=== PATIENT | male | born 2000 | race African-American/Black ===

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

== ENCOUNTER 2020-05-08 21:51 | Emergency (ER) | payer MEDICAID ==
[~2020-05-08] VITALS: Ht 177.8 cm; Wt 81.8 kg
[2020-05-08 22:12] VITALS: Ht 177.8 cm; Wt 81.8 kg
--- NOTE | 2020-05-08 22:30 | NUR ---
DR GOLDBERG NOTIFIED AND REVIEWED PT'S BEHAVIOR AND ASSESSMENT RESULTS, PT IS A LOW RISK PER DR GOLDBERG. DR GOLDBERG STATED TO GIVE RESOURCES TO PT AT TIME OF DISCHARGE. NO FURTHER ORDERS AT THIS TIME. RESOURCES REVIEWED WITH PT AND HE VERBALIZED UNDERSTANDING.
[2020-05-08 23:18] LABS: BASOPHILS 0.7 % (0-2); EOSINOPHILS 5.9 % (0-7); HEMATOCRIT 42.5 % (42.0-54.0); HEMOGLOBIN 14.3 g/dL (13.5-17.5); IMMATURE GRANULOCYTES 0.2 % (0-5); LYMPHOCYTES 45.5 % (15-50); MCH 28.4 pg (26.0-34.0); MCHC 33.6 g/dL (31.0-37.0); MCV 84.5 fL (80.0-100.0); MEAN PLATELET VOLUME 8.7 fL (7.4-10.4); MONOCYTES 9.8 % (2-11); NEUTROPHILS 37.9 % (40-80); PLATELET COUNT 226 10x3/uL (130-400); RBC 5.03 10x6/uL (4.20-6.10); RDW 13.9 % (11.5-14.5); WBC 6.1 10x3/uL (4.8-10.8)
[2020-05-08 23:23] LABS: CALC OSMOLALITY 274 mosm/kg (275-300); CALCIUM 8.6 mg/dL (8.5-10.1); CARBON DIOXIDE 25.3 mmol/L (21.0-32.0); CHLORIDE - SERUM 105 mmol/L (98-107); CREATININE - SERUM 0.8 mg/dL (0.6-1.3); GLUCOSE 105 mg/dL (74-106); POTASSIUM - SERUM 3.8 mmol/L (3.5-5.1); SODIUM 137 mmol/L (136-145); UREA NITROGEN 14 mg/dL (7-18); eGFR NON AFRICAN AMERICAN > 90 mL/min (90-120)
[2020-05-08 23:31] LABS: ALBUMIN 3.2 g/dL (3.4-5.0); ALKALINE PHOSPHATASE 120 U/L (30-120); ALT (SGPT) 31 U/L (10-68); BILIRUBIN - TOTAL 0.35 mg/dL (0.2-1.3); MAGNESIUM - SERUM 1.6 mg/dL (1.8-2.4); PROTEIN - SERUM 6.8 g/dL (6.4-8.2)
[2020-05-08 23:57] LABS: BILIRUBIN NEGATIVE (NEGATIVE); GLUCOSE NEGATIVE (NEGATIVE); KETONE NEGATIVE (NEGATIVE); NITRITE NEGATIVE (NEGATIVE); UROBILINOGEN NORMAL (NORMAL)
[2020-05-09 00:07] LABS: UDS - AMPHET POSITIVE QUAL (NEGATIVE); UDS - BARB NEGATIVE QUAL (NEGATIVE); UDS - BENZO POSITIVE QUAL (NEGATIVE); UDS - COCAINE NEGATIVE QUAL (NEGATIVE); UDS - OPIATE NEGATIVE QUAL (NEGATIVE); UDS - PCP NEGATIVE QUAL (NEGATIVE); UDS - THC NEGATIVE QUAL (NEGATIVE)
[2020-05-09 03:24] VITALS: BP 119/59
== END 2020-05-09 06:58 ==
LOC: D.ER 21:51
PROVIDERS: Family Medicine
DX: R45.851 Suicidal ideations (principal); F23 Brief psychotic disorder; Z91.19 Patient's noncompliance with other medical treatment and regimen

== ENCOUNTER 2020-05-26 20:19 | Emergency (ER) | payer MEDICAID ==
[~2020-05-26] VITALS: Ht 177.8 cm; Wt 72.7 kg
[2020-05-26 20:25] VITALS: Ht 177.8 cm; Wt 72.7 kg
[2020-05-26 20:54] LABS: BILIRUBIN NEGATIVE (NEGATIVE); GLUCOSE NEGATIVE (NEGATIVE); KETONE NEGATIVE (NEGATIVE); NITRITE NEGATIVE (NEGATIVE); SPECIFIC GRAVITY 1.015 (1.005-1.020); UROBILINOGEN NORMAL (NORMAL)
[2020-05-26 21:03] LABS: UDS - AMPHET POSITIVE QUAL (NEGATIVE); UDS - BARB NEGATIVE QUAL (NEGATIVE); UDS - BENZO NEGATIVE QUAL (NEGATIVE); UDS - COCAINE NEGATIVE QUAL (NEGATIVE); UDS - OPIATE NEGATIVE QUAL (NEGATIVE); UDS - PCP NEGATIVE QUAL (NEGATIVE); UDS - THC NEGATIVE QUAL (NEGATIVE)
[2020-05-26 21:03] LABS: HEMATOCRIT 47.2 % (42.0-54.0); HEMOGLOBIN 15.4 g/dL (13.5-17.5); LYMPHOCYTES 53.9 % (15-50); MCH 27.9 pg (26.0-34.0); MCHC 32.6 g/dL (31.0-37.0); MCV 85.5 fL (80.0-100.0); MEAN PLATELET VOLUME 9.4 fL (7.4-10.4); NEUTROPHILS 34.2 % (40-80); PLATELET COUNT 263 10x3/uL (130-400); RBC 5.52 10x6/uL (4.20-6.10); RDW 14.2 % (11.5-14.5)
[2020-05-26 21:08] LABS: CALC OSMOLALITY 270 mosm/kg (275-300); CARBON DIOXIDE 27.6 mmol/L (21.0-32.0); CHLORIDE - SERUM 101 mmol/L (98-107); CREATININE - SERUM 0.8 mg/dL (0.6-1.3); GLUCOSE 93 mg/dL (74-106); POTASSIUM - SERUM 3.5 mmol/L (3.5-5.1); SODIUM 136 mmol/L (136-145); UREA NITROGEN 11 mg/dL (7-18); eGFR NON AFRICAN AMERICAN > 90 mL/min (90-120)
[2020-05-26 21:14] LABS: ALKALINE PHOSPHATASE 121 U/L (30-120); ALT (SGPT) 30 U/L (10-68); BILIRUBIN - TOTAL 0.43 mg/dL (0.2-1.3); PROTEIN - SERUM 8.1 g/dL (6.4-8.2)
--- NOTE | 2020-05-26 21:36 | NUR ---
UNABLE TO COMPLETE ASSESSMENT DUE TO PT BEING SEDATED AT THIS TIME. PT ATTEMPTED TO STAB SELF IN THE NECK DURING ASSESSMENT. SITTER ORDERED IN LINE OF SIGHT. PAPERWORK STARTED AND SITTER IN PLACE. UNABLE TO SIGN PAPERWORK AT THIS TIME.
[2020-05-27 09:47] VITALS: BP 148/79
== END 2020-05-27 09:51 ==
LOC: D.ER 20:19
PROVIDERS: Emergency Medicine
DX: R45.851 Suicidal ideations (principal); F15.10 Other stimulant abuse, uncomplicated

== ENCOUNTER 2020-06-03 05:57 | Emergency (ER) | payer MEDICAID ==
[~2020-06-03] VITALS: Ht 177.8 cm; Wt 81.8 kg
[2020-06-03 05:59] VITALS: Ht 177.8 cm; Wt 81.8 kg
[2020-06-03 06:31] LABS: UDS - AMPHET POSITIVE QUAL (NEGATIVE); UDS - BARB NEGATIVE QUAL (NEGATIVE); UDS - BENZO NEGATIVE QUAL (NEGATIVE); UDS - COCAINE NEGATIVE QUAL (NEGATIVE); UDS - OPIATE NEGATIVE QUAL (NEGATIVE); UDS - PCP NEGATIVE QUAL (NEGATIVE); UDS - THC NEGATIVE QUAL (NEGATIVE)
[2020-06-03 06:45] LABS: CALC OSMOLALITY 276 mosm/kg (275-300); CALCIUM 9.3 mg/dL (8.5-10.1); CARBON DIOXIDE 26.6 mmol/L (21.0-32.0); CHLORIDE - SERUM 104 mmol/L (98-107); POTASSIUM - SERUM 4.5 mmol/L (3.5-5.1); SODIUM 138 mmol/L (136-145); UREA NITROGEN 21 mg/dL (7-18); eGFR NON AFRICAN AMERICAN > 90 mL/min (90-120)
[2020-06-03 06:57] LABS: GLUCOSE 66 mg/dL (74-106)
[2020-06-03 07:11] LABS: ALKALINE PHOSPHATASE 112 U/L (30-120); ALT (SGPT) 34 U/L (10-68); BILIRUBIN - TOTAL 0.33 mg/dL (0.2-1.3); PROTEIN - SERUM 8.3 g/dL (6.4-8.2); THYROID STIMULATING HORMONE 3.44 uIU/mL (0.36-3.74)
[2020-06-03 07:12] LABS: HEMATOCRIT 48.6 % (42.0-54.0); HEMOGLOBIN 16.4 g/dL (13.5-17.5); MCH 28.5 pg (26.0-34.0); MCHC 33.7 g/dL (31.0-37.0); MCV 84.4 fL (80.0-100.0); MEAN PLATELET VOLUME 9.5 fL (7.4-10.4); PLATELET COUNT 250 10x3/uL (130-400); RBC 5.76 10x6/uL (4.20-6.10); WBC 10.2 10x3/uL (4.8-10.8)
[2020-06-03 07:14] LABS: CKMB 9.4 U/L (0.0-3.6); CREATINE KINASE 1471 UL (21-232)
[2020-06-03 07:39] LABS: BACTERIA FEW /hpf (NEGATIVE); BILIRUBIN NEGATIVE (NEGATIVE); EPITHELIAL CELLS RARE /hpf (0-5); GLUCOSE NEGATIVE (NEGATIVE); KETONE SMALL mg/dL (NEGATIVE); NITRITE NEGATIVE (NEGATIVE); SPECIFIC GRAVITY 1.025 (1.005-1.020); UROBILINOGEN NORMAL (NORMAL)
[2020-06-03 12:16] VITALS: BP 114/69
[2020-06-03 12:50] LABS: EOSINOPHILS 3 % (0-7); LYMPHOCYTES 33 % (15-50); MONOCYTES 18 % (2-11); NEUTROPHILS 46 % (40-80); PLATELET ESTIMATE NORMAL
[2020-06-03 12:53] LABS: ROULEAUX OCC
== END 2020-06-03 12:16 | disposition home or self-care (01) ==
LOC: D.ER 05:57
PROVIDERS: Family Medicine
DX: R41.82 Altered mental status, unspecified (principal); F20.9 Schizophrenia, unspecified; M62.82 Rhabdomyolysis; F19.10 Other psychoactive substance abuse, uncomplicated; I10 Essential (primary) hypertension

== ENCOUNTER 2020-06-06 17:19 | Emergency (ER) | payer MEDICAID ==
[~2020-06-06] VITALS: Ht 177.8 cm; Wt 67.3 kg
[2020-06-06 17:24] VITALS: Ht 177.8 cm; Wt 67.3 kg
[2020-06-06 17:56] LABS: UDS - AMPHET POSITIVE QUAL (NEGATIVE); UDS - BARB NEGATIVE QUAL (NEGATIVE); UDS - BENZO POSITIVE QUAL (NEGATIVE); UDS - COCAINE NEGATIVE QUAL (NEGATIVE); UDS - OPIATE NEGATIVE QUAL (NEGATIVE); UDS - PCP NEGATIVE QUAL (NEGATIVE); UDS - THC NEGATIVE QUAL (NEGATIVE)
[2020-06-06 18:02] LABS: BASOPHILS 0.4 % (0-2); EOSINOPHILS 3.2 % (0-7); HEMATOCRIT 41.2 % (42.0-54.0); HEMOGLOBIN 13.7 g/dL (13.5-17.5); IMMATURE GRANULOCYTES 0.1 % (0-5); LYMPHOCYTES 51.1 % (15-50); MCH 28.4 pg (26.0-34.0); MCHC 33.3 g/dL (31.0-37.0); MCV 85.5 fL (80.0-100.0); MEAN PLATELET VOLUME 9.3 fL (7.4-10.4); MONOCYTES 11.7 % (2-11); NEUTROPHILS 33.5 % (40-80); RBC 4.82 10x6/uL (4.20-6.10); RDW 14.6 % (11.5-14.5); WBC 7.2 10x3/uL (4.8-10.8)
[2020-06-06 18:22] LABS: BILIRUBIN NEGATIVE (NEGATIVE); GLUCOSE NEGATIVE (NEGATIVE); KETONE NEGATIVE (NEGATIVE); NITRITE NEGATIVE (NEGATIVE); UROBILINOGEN NORMAL (NORMAL)
[2020-06-06 18:22] LABS: PLATELET COUNT 183 10x3/uL (130-400)
[2020-06-06 18:25] LABS: CALC OSMOLALITY 267 mosm/kg (275-300); CALCIUM 8.7 mg/dL (8.5-10.1); CARBON DIOXIDE 26.2 mmol/L (21.0-32.0); CHLORIDE - SERUM 104 mmol/L (98-107); CREATININE - SERUM 0.9 mg/dL (0.6-1.3); GLUCOSE 76 mg/dL (74-106); SODIUM 135 mmol/L (136-145); UREA NITROGEN 10 mg/dL (7-18); eGFR NON AFRICAN AMERICAN > 90 mL/min (90-120)
[2020-06-06 18:29] LABS: ALBUMIN 3.3 g/dL (3.4-5.0); ALKALINE PHOSPHATASE 91 U/L (30-120); ALT (SGPT) 34 U/L (10-68); BILIRUBIN - TOTAL 0.28 mg/dL (0.2-1.3); MAGNESIUM - SERUM 1.3 mg/dL (1.8-2.4); PROTEIN - SERUM 6.6 g/dL (6.4-8.2)
--- NOTE | 2020-06-06 18:55 | NUR ---
PATIENT IS SEEN IN ER FOR SUICIDIAL IDEATIONS. HE STATES THAT HE WILL CUT HIS ARM OFF AND BLEED TO . HE WAS GIVEN ATIVAN FOR EXTREME AGITATION THEREFORE THE ASSESSMENT WAS DIFFICULT, HE KEPT FALLING ASLEEP AND MUMBLING HOWEVER HE MADE IT CLEAR THAT HE WANTED TO . PATIENT WILL BE PLACE ON ONE TO ONE AND PLACED PER ER. 1800 NUMBER GIVEN TO PATIENT FOR FUTURE REFERENCE.
[2020-06-08 04:17] VITALS: BP 122/77
== END 2020-06-08 04:19 ==
LOC: D.ER 17:19
PROVIDERS: Family Medicine
DX: R45.851 Suicidal ideations (principal); E83.42 Hypomagnesemia; F20.9 Schizophrenia, unspecified; I10 Essential (primary) hypertension; Z72.0 Tobacco use

== ENCOUNTER 2020-06-26 13:37 | Emergency (ER) | payer MEDICAID ==
[~2020-06-26] VITALS: Ht 177.8 cm; Wt 70.5 kg
[2020-06-26 14:00] VITALS: Ht 177.8 cm; Wt 70.5 kg
[2020-06-26 14:34] LABS: BASOPHILS 0.3 % (0-2); EOSINOPHILS 1.9 % (0-7); HEMOGLOBIN 16.2 g/dL (13.5-17.5); IMMATURE GRANULOCYTES 0.1 % (0-5); LYMPHOCYTES 36.3 % (15-50); MCH 28.9 pg (26.0-34.0); MCHC 34.5 g/dL (31.0-37.0); MCV 83.9 fL (80.0-100.0); MEAN PLATELET VOLUME 9.4 fL (7.4-10.4); MONOCYTES 15.2 % (2-11); NEUTROPHILS 46.2 % (40-80); PLATELET COUNT 184 10x3/uL (130-400); RDW 14.6 % (11.5-14.5)
[2020-06-26 14:48] LABS: CALC OSMOLALITY 278 mosm/kg (275-300); CALCIUM 9.4 mg/dL (8.5-10.1); CARBON DIOXIDE 29.2 mmol/L (21.0-32.0); CHLORIDE - SERUM 103 mmol/L (98-107); CREATININE - SERUM 0.9 mg/dL (0.6-1.3); GLUCOSE 81 mg/dL (74-106); POTASSIUM - SERUM 4.1 mmol/L (3.5-5.1); SODIUM 141 mmol/L (136-145); UREA NITROGEN 11 mg/dL (7-18); eGFR NON AFRICAN AMERICAN > 90 mL/min (90-120)
[2020-06-26 15:09] LABS: BILIRUBIN NEGATIVE (NEGATIVE); GLUCOSE NEGATIVE (NEGATIVE); KETONE NEGATIVE (NEGATIVE); NITRITE NEGATIVE (NEGATIVE); UROBILINOGEN NORMAL (NORMAL)
[2020-06-26 15:12] LABS: ALBUMIN 4.3 g/dL (3.4-5.0); ALKALINE PHOSPHATASE 101 U/L (30-120); ALT (SGPT) 26 U/L (10-68); BILIRUBIN - TOTAL 0.56 mg/dL (0.2-1.3); PROTEIN - SERUM 8.3 g/dL (6.4-8.2)
[2020-06-26 15:16] LABS: CREATINE KINASE 1266 UL (21-232)
[2020-06-26 15:17] LABS: CKMB 3.8 U/L (0.0-3.6)
[2020-06-26 15:17] LABS: UDS - AMPHET POSITIVE QUAL (NEGATIVE); UDS - BARB NEGATIVE QUAL (NEGATIVE); UDS - BENZO NEGATIVE QUAL (NEGATIVE); UDS - COCAINE NEGATIVE QUAL (NEGATIVE); UDS - OPIATE NEGATIVE QUAL (NEGATIVE); UDS - PCP NEGATIVE QUAL (NEGATIVE); UDS - THC NEGATIVE QUAL (NEGATIVE)
--- NOTE | 2020-06-26 16:20 | NUR ---
DR. GOLDBERG NOTIFIED AND REVIEWED PT'S BEHAVIOR AND ASSESSMENT RESULTS. SITTER ORDERED. SITTER AT BEDSIDE. NOTIFIED CHARGE NURSE AND ATTENDING IN REGARDS TO ASSESSMENT FINDINGS. RESOURCES GIVEN TO PT SAFETY PLAN INITIATED.
[2020-06-27 03:18] VITALS: BP 123/53
== END 2020-06-27 05:33 ==
LOC: D.ER 13:37
PROVIDERS: Family Medicine
DX: R45.851 Suicidal ideations (principal); M62.82 Rhabdomyolysis; F19.10 Other psychoactive substance abuse, uncomplicated; E07.9 Disorder of thyroid, unspecified; I10 Essential (primary) hypertension

== ENCOUNTER 2020-07-08 12:32 | Emergency (ER) | payer MEDICAID ==
[~2020-07-08] VITALS: Ht 177.8 cm; Wt 70.5 kg
[2020-07-08 12:37] VITALS: BP 123/70; Ht 177.8 cm; Wt 70.5 kg
--- NOTE | 2020-07-08 13:08 | NUR ---
DR. GOLDBERG NOTIFIED AND SITTER ORDERED. SITTER AT BEDSIDE. NOTIFIED CHARGE NURSE AND ATTENDING IN REGARDS TO ASSESSMENT FINDINGS. RESOURCES GIVEN TO PT AND SAFETY PLAN INITIATED.
--- NOTE | 2020-07-08 13:18 | NUR ---
PT REFUSED SAFETY PLAN AT THIS TIME X 3.
[2020-07-08 13:42] LABS: CALC OSMOLALITY 275 mosm/kg (275-300); CALCIUM 8.6 mg/dL (8.5-10.1); CARBON DIOXIDE 28.2 mmol/L (21.0-32.0); CHLORIDE - SERUM 105 mmol/L (98-107); GLUCOSE 82 mg/dL (74-106); POTASSIUM - SERUM 3.5 mmol/L (3.5-5.1); SODIUM 138 mmol/L (136-145); UREA NITROGEN 16 mg/dL (7-18); eGFR NON AFRICAN AMERICAN > 90 mL/min (90-120)
[2020-07-08 13:43] LABS: BASOPHILS 0.3 % (0-2); EOSINOPHILS 1.5 % (0-7); HEMATOCRIT 42.2 % (42.0-54.0); HEMOGLOBIN 14.2 g/dL (13.5-17.5); IMMATURE GRANULOCYTES 0.1 % (0-5); LYMPHOCYTES 37.1 % (15-50); MCH 28.5 pg (26.0-34.0); MCHC 33.6 g/dL (31.0-37.0); MCV 84.6 fL (80.0-100.0); MEAN PLATELET VOLUME 9.5 fL (7.4-10.4); MONOCYTES 10.5 % (2-11); NEUTROPHILS 50.5 % (40-80); PLATELET COUNT 204 10x3/uL (130-400); RBC 4.99 10x6/uL (4.20-6.10); RDW 14.7 % (11.5-14.5); WBC 7.8 10x3/uL (4.8-10.8)
[2020-07-08 13:48] LABS: ALBUMIN 3.6 g/dL (3.4-5.0); ALKALINE PHOSPHATASE 79 U/L (30-120); ALT (SGPT) 16 U/L (10-68); BILIRUBIN - TOTAL 0.52 mg/dL (0.2-1.3); MAGNESIUM - SERUM 1.9 mg/dL (1.8-2.4); PROTEIN - SERUM 7.4 g/dL (6.4-8.2)
[2020-07-08 14:12] LABS: UDS - AMPHET POSITIVE QUAL (NEGATIVE); UDS - BARB NEGATIVE QUAL (NEGATIVE); UDS - BENZO NEGATIVE QUAL (NEGATIVE); UDS - COCAINE NEGATIVE QUAL (NEGATIVE); UDS - OPIATE NEGATIVE QUAL (NEGATIVE); UDS - PCP NEGATIVE QUAL (NEGATIVE); UDS - THC NEGATIVE QUAL (NEGATIVE)
[2020-07-08 14:14] LABS: BACTERIA FEW /hpf (NEGATIVE); BILIRUBIN NEGATIVE (NEGATIVE); EPITHELIAL CELLS RARE /hpf (0-5); GLUCOSE NEGATIVE (NEGATIVE); KETONE SMALL mg/dL (NEGATIVE); NITRITE NEGATIVE (NEGATIVE); RED CELLS - URINE NONE SEEN /hpf (0-5); UROBILINOGEN 4 mg/dL (NORMAL); WHITE CELLS - URINE 0-5 /hpf (NEGATIVE)
== END 2020-07-08 19:06 ==
LOC: D.ER 12:32
PROVIDERS: Family Medicine
DX: R45.851 Suicidal ideations (principal); I10 Essential (primary) hypertension; F32.9 Major depressive disorder, single episode, unspecified; F20.9 Schizophrenia, unspecified

== ENCOUNTER 2020-07-13 06:41 | Emergency (ER) | payer MEDICAID ==
[~2020-07-13] VITALS: Ht 177.8 cm; Wt 72.6 kg
[2020-07-13 06:57] VITALS: BP 136/89; Ht 177.8 cm; Wt 72.6 kg
== END 2020-07-13 07:18 | disposition left against medical advice (07) ==
LOC: D.ER 06:41
DX: Z53.21 Procedure and treatment not carried out due to patient leaving prior to being seen by health care provider (principal)

== ENCOUNTER 2020-07-13 07:22 | Emergency (ER) | payer MEDICAID ==
[~2020-07-13] VITALS: Ht 177.8 cm; Wt 75.0 kg
[2020-07-13 07:32] VITALS: BP 135/97; Ht 177.8 cm; Wt 75.0 kg
[2020-07-13 08:13] LABS: BASOPHILS 0.4 % (0-2); CALC OSMOLALITY 279 mosm/kg (275-300); CALCIUM 9.3 mg/dL (8.5-10.1); CARBON DIOXIDE 24.7 mmol/L (21.0-32.0); CHLORIDE - SERUM 103 mmol/L (98-107); CREATININE - SERUM 0.9 mg/dL (0.6-1.3); EOSINOPHILS 0.4 % (0-7); GLUCOSE 91 mg/dL (74-106); HEMOGLOBIN 14.1 g/dL (13.5-17.5); IMMATURE GRANULOCYTES 0.2 % (0-5); LYMPHOCYTES 25.6 % (15-50); MCH 28.5 pg (26.0-34.0); MCHC 34.4 g/dL (31.0-37.0); MEAN PLATELET VOLUME 9.4 fL (7.4-10.4); MONOCYTES 13.2 % (2-11); NEUTROPHILS 60.2 % (40-80); PLATELET COUNT 210 10x3/uL (130-400); POTASSIUM - SERUM 3.9 mmol/L (3.5-5.1); RBC 4.94 10x6/uL (4.20-6.10); RDW 14.8 % (11.5-14.5); SODIUM 140 mmol/L (136-145); UREA NITROGEN 14 mg/dL (7-18); WBC 10.3 10x3/uL (4.8-10.8); eGFR NON AFRICAN AMERICAN > 90 mL/min (90-120)
[2020-07-13 08:16] LABS: ALBUMIN 4.2 g/dL (3.4-5.0); ALKALINE PHOSPHATASE 83 U/L (30-120); ALT (SGPT) 23 U/L (10-68); BILIRUBIN - TOTAL 0.34 mg/dL (0.2-1.3); MAGNESIUM - SERUM 1.6 mg/dL (1.8-2.4)
[2020-07-13 09:04] LABS: UDS - AMPHET POSITIVE QUAL (NEGATIVE); UDS - BARB NEGATIVE QUAL (NEGATIVE); UDS - BENZO NEGATIVE QUAL (NEGATIVE); UDS - COCAINE NEGATIVE QUAL (NEGATIVE); UDS - OPIATE NEGATIVE QUAL (NEGATIVE); UDS - PCP NEGATIVE QUAL (NEGATIVE); UDS - THC NEGATIVE QUAL (NEGATIVE)
[2020-07-13 09:18] LABS: BACTERIA NONE SEEN /hpf (NONE SEEN); BILIRUBIN NEGATIVE (NEGATIVE); EPITHELIAL CELLS 0-5 /hpf (0-5); KETONE NEGATIVE (NEGATIVE); NITRITE NEGATIVE (NEGATIVE); RED CELLS - URINE RARE /hpf (0-5); UROBILINOGEN NORMAL (NORMAL)
== END 2020-07-13 09:25 | disposition home or self-care (01) ==
LOC: D.ER 07:22
PROVIDERS: Family Medicine
DX: F15.10 Other stimulant abuse, uncomplicated (principal); F22 Delusional disorders; F19.10 Other psychoactive substance abuse, uncomplicated; E07.9 Disorder of thyroid, unspecified; I10 Essential (primary) hypertension

== ENCOUNTER 2021-02-14 16:04 | Emergency (ER) | payer MEDICAID ==
[~2021-02-14] VITALS: Ht 177.8 cm; Wt 70.0 kg
[~2021-02-14 16:04] MED LIST changes: +LITHIUM CARBON300 MG PO; +ZOLOFT50 MG PO
[2021-02-14 16:07] VITALS: Ht 177.8 cm; Wt 70.0 kg
[2021-02-14] MEDS ORDERED: CYMBALTA30 MG (16:34)
[2021-02-14] MEDS ORDERED: DEPAKOTE250 MG (16:35)
[2021-02-14] MEDS ORDERED: TRILEPTAL300 MG ×2 (16:36→16:37)
[2021-02-14] MEDS ORDERED: ZOLOFT50 MG (16:38)
[2021-02-14 16:42] LABS: BASOPHILS 0.5 % (0-2); EOSINOPHILS 2.9 % (0-7); HEMATOCRIT 45.8 % (42.0-54.0); IMMATURE GRANULOCYTES 0.2 % (0-5); LYMPHOCYTE ABS# 2.74 10x3/uL (1.32-3.57); LYMPHOCYTES 42.3 % (15-50); MCH 28.1 pg (26.0-34.0); MCHC 32.8 g/dL (31.0-37.0); MCV 85.9 fL (80.0-100.0); MEAN PLATELET VOLUME 9.7 fL (7.4-10.4); MONOCYTES 7.3 % (2-11); NEUTROPHIL ABS# 3.04 10x3/uL (1.78-5.38); NEUTROPHILS 46.8 % (40-80); RBC 5.33 10x6/uL (4.20-6.10); RDW 14.7 % (11.5-14.5); WBC 6.5 10x3/uL (4.8-10.8)
[2021-02-14 16:50] LABS: PLATELET COUNT 411 10x3/uL (130-400)
[2021-02-14 16:57] LABS: CALC OSMOLALITY 278 mosm/kg (275-300); CALCIUM 9.2 mg/dL (8.5-10.1); CARBON DIOXIDE 27.3 mmol/L (21.0-32.0); CHLORIDE - SERUM 104 mmol/L (98-107); CREATININE - SERUM 0.7 mg/dL (0.6-1.3); GLUCOSE 87 mg/dL (74-106); SODIUM 141 mmol/L (136-145); UREA NITROGEN 9 mg/dL (7-18); eGFR NON AFRICAN AMERICAN > 90 mL/min (90-120)
[2021-02-14 17:00] LABS: ALBUMIN 3.5 g/dL (3.4-5.0); ALKALINE PHOSPHATASE 189 U/L (30-120); ALT (SGPT) 37 U/L (10-68); MAGNESIUM - SERUM 1.6 mg/dL (1.8-2.4); PROTEIN - SERUM 8.1 g/dL (6.4-8.2)
[2021-02-14 17:13] LABS: UDS - AMPHET NEGATIVE QUAL (NEGATIVE); UDS - BARB NEGATIVE QUAL (NEGATIVE); UDS - BENZO NEGATIVE QUAL (NEGATIVE); UDS - COCAINE NEGATIVE QUAL (NEGATIVE); UDS - OPIATE NEGATIVE QUAL (NEGATIVE); UDS - PCP NEGATIVE QUAL (NEGATIVE); UDS - THC NEGATIVE QUAL (NEGATIVE)
[2021-02-14 17:35] LABS: BILIRUBIN NEGATIVE (NEGATIVE); KETONE NEGATIVE (NEGATIVE); NITRITE NEGATIVE (NEGATIVE); UROBILINOGEN NORMAL mg/dL (< 2)
--- NOTE | 2021-02-14 18:16 | NUR ---
Per interview with patient, he scored a moderate risk factor for suicidal risk. Spoke with ER MD and charge nurse and they state that they going to look for placement for him and request a one to one sitter. Patient would not complete all questions and started yelling at this nurse. ER MD and charge nurses came to patients room and requested that he stop yelling. Suicide risk assessment un complete.
[2021-02-14 21:25] LABS: SARS-CoV-2 ANTIGEN NEGATIVE- SARS-COV-2 (NEGATIVE)
[2021-02-15 00:28] VITALS: BP 121/79
== END 2021-02-15 00:28 ==
LOC: D.ER 16:04
PROVIDERS: Emergency Medicine; Family Medicine
DX: Z91.14 Patient's other noncompliance with medication regimen (principal); R45.1 Restlessness and agitation; F31.9 Bipolar disorder, unspecified; F20.9 Schizophrenia, unspecified; E03.9 Hypothyroidism, unspecified; I10 Essential (primary) hypertension; Z72.0 Tobacco use

== ENCOUNTER 2021-02-25 10:57 | Emergency (ER) | payer MEDICAID ==
[~2021-02-25] VITALS: Ht 177.8 cm; Wt 68.2 kg
[~2021-02-25 10:57] MED LIST changes: +CYMBALTA30 MG; +DEPAKOTE250 MG; +TRILEPTAL300 MG; +ZOLOFT50 MG
[2021-02-25 11:03] VITALS: BP 139/91; Ht 177.8 cm; Wt 68.2 kg
== END 2021-02-25 12:50 | disposition home or self-care (01) ==
LOC: D.ER 10:57
DX: S01.01XA Laceration without foreign body of scalp, initial encounter (principal); I10 Essential (primary) hypertension; S09.90XA Unspecified injury of head, initial encounter; W19.XXXA Unspecified fall, initial encounter; Y93.9 Activity, unspecified; Y92.9 Unspecified place or not applicable